=== PATIENT | female | born 1995 | race Caucasian/White ===

== ENCOUNTER 2020-12-05 14:00 | Emergency (ER) | payer OTHER ==
[~2020-12-05] VITALS: Ht 157.5 cm; Wt 45.4 kg
--- NOTE | ~2020-12-05 | EMS ---
[place] [address] EMS Patient Care Report Name: JACKY ELLIOTT Room #: DEP EMEKA Ashely#: [id number] Admission: 12/05/20 Attend Phys: Discharge: 12/05/20 Date of : [birth year] Report #: [id number] THIS REPORT FOR: //name// Report Transmitted: 12/06/2020 12:00 EMS Care Summary [place], [place]/[facility] Incident [phone] @ 12/05/2020 13:19 Incident Location [address] [place] [address] Patient JACKY ELLIOTT Female, 25 Years 1995 Patient Address [address] [place] [address] Patient History Anxiety, Patient Allergies Augmentin, Patient Medications None Reported, Chief Complaint PALPITATIONS Disposition Transported No Lights/[place] Dispatch Reason Heart Problems/AICD Transported To [facility] Narrative MEDIC 30 RESPONDS TO A RESIDENCE ON A REPORTED HEART PROBLEMS. UPON ARRIVAL, EMS FINDS ADULT FEMALE CALMLY WALKING TOWARD AMBULANCE WITH [employer] NEARBY. PT APPEARS TO AMBULATE ON SCENE WITH OUT OBVIOUS DIFFICULTY. RESPIRATIONS APPEAR ADEQUATE, AND NON LABORED. PT ASSISTED INTO AMBULANCE, AND [address] [address] EMS Patient Care Report Name: JACKY ELLIOTT Room #: DEP EMEKA Ashley#: [id number] Admission: 12/05/20 Attend Phys: Discharge: 12/05/20 Date of : [birth year] Report #: [id number] HPI OBTIANED WHILE ASSESSING VITAL SIGNS. PT REPORTS HAVING A SENSATION OF "HEART BURN" FOR "A LITTLE OVER A MONTH", AND WAS HAVING THIS HEART BURN TODAY WHEN PT SUDDENLY BEGAN HAVING SENSATION OF HIGH HEART RATE AND DIZZINESS. PT DESCRIBES SYMPTOMS "MY HEART JUST FEELS LIKE IT'S RACING REALLY BAD FOR NO REASON". PT DESCRIBES EVENTS LEADING UP TO INCIDENT "I WAS JUST WATCHING TELEVISION". PT DENIES RECENT SUBSTANCE/STIMULANT USE, OR RECENT TRAUMA. PT DENIES KNOWN CARDIAC HX, AND DENIES EVER HAVING DIAGNOSED TACHYCARDIA BEFORE. WHEN ASKED IF PT HAS PAIN ANYWHERE, PT RESPONDS YEAH. I'M HAVING REALLY INTENSE HEART BURN PAIN RIGHT NOW". PT TRANSPORTED WITH ONGOING ASSESSMENT. REPORT TO STAFF UPON ARRIVAL. Initial Vitals @13:33P: 139,R: 15,Glucose: 114,CO: 4,SpO2: 100, @13:52P: 127,R: 15,BP: 124/75,CO: 0,SpO2: 100, @13:26P: 145,R: 17,BP: 121/89,GCS: 15,CO: 1,SpO2: 98,Revised Trauma: 12, Assessments @13:24MENTAL:Place Oriented,Time Oriented,Event Oriented,Person Oriented,SKIN:HEENT:Head/Face: Other,Neck/Airway: No Abnormalities,LUNG SOUNDS:ABDOMEN:PELVIS//GI:EXTREMITIES:Left Arm: No Abnormalities,Right Arm: No Abnormalities,Left Leg: No Abnormalities,Right Leg: No Abnormalities,PULSE:Radial: 2+ Normal,NEURO:No Abnormalities,@13:37MENTAL:Person Oriented,Time Oriented,Place Oriented,Event Oriented,SKIN:HEENT:Head/Face: Other,Neck/Airway: No Abnormalities,LUNG SOUNDS:ABDOMEN:PELVIS//GI:EXTREMITIES:Left Arm: No Abnormalities,Right Arm: No Abnormalities,Left Leg: No Abnormalities,Right Leg: No Abnormalities,PULSE:NEURO:No Abnormalities, Impression Cardiac arrhythmia/dysrhythmia Procedures @13:3312-Lead ECGResponse: UnchangedSucceeded@13:24ALS AssessmentResponse: UnchangedSucceeded@13:25StretcherResponse: Unchanged@13:36Saline Lock 10cc (20 ga) Site: Antecubital-RightResponse: UnchangedSucceeded@13:31Saline Lock 0cc (18 ga) Site: Antecubital-LeftResponse: UnchangedFailed@13:273-Lead ECGResponse: UnchangedSucceeded Timeline 13:17,Call Received 13:17,Dispatch Notified 13:19,Dispatched 13:20,En Route 13:24,On Scene 13:24,At Patient 13:24,ALS Assessment,Response: UnchangedSucceeded, [facility] [address] [place] [address] EMS Patient Care Report Name: JACKY ELLIOTT Room #: PANCHO Ashley#: [id number] Admission: 12/05/20 Attend Phys: Discharge: 12/05/20 Date of : [birth year] Report #: [id number] 13:25,Stretcher,Response: Unchanged 13:26,BP: 121/89 M,PULSE: 145,RR: 17 R,SPO2: 98 Ox,ETCO2: ,BG: ,PAIN: ,GCS: 15, 13:27,3-Lead ECG,Response: UnchangedSucceeded, 13:31,Saline Lock 0cc 18 ga Site: Antecubital-Left,Response: UnchangedFailed, 13:33,12-Lead ECG,Response: UnchangedSucceeded, 13:33,BP: / M,PULSE: 139,RR: 15 R,SPO2: 100 Ox,ETCO2: ,B,PAIN: ,GCS: , 13:36,Saline Lock 10cc 20 ga Site: Antecubital-Right,Response: UnchangedSucceeded, 13:47,Depart Scene 13:52,BP: 124/75 M,PULSE: 127,RR: 15 R,SPO2: 100 Ox,ETCO2: ,BG: ,PAIN: ,GCS: , 13:55,At Destination 14:35,Call Closed Disclaimer v1.1 Copyright 2020 [employer] This EMS Care Summary contains data elements from the applicable legal record (which may be displayed differently). It is designed to provide pertinent information for the following purposes: continuity of care, clinical quality, and state data reporting. The complete legal record is available to ED staff and administrators of the receiving hospital in ES's Patient Tracker. All data is provided "as is."
[2020-12-05 14:21] LABS: ABSOLUTE NEUTROPHILS 2.9 thou/uL (1.4-8.2); BASOPHILS 0.5 % (0.0-2.0); EOSINOPHILS 2.1 % (0.0-3.0); HEMATOCRIT 38.9 % (37.0-47.0); HEMOGLOBIN 13.4 gm/dL (12.0-15.0); LYMPHOCYTES 41.7 % (24.0-44.0); MCH 30.2 pg (26.0-34.0); MCHC 34.5 g/dL (28.0-37.0); MCV 87.5 fL (80.0-100.0); MONOCYTES 6.3 % (1.0-8.0); PLATELET COUNT 250 thou/uL (150-400); POLYS 49.4 % (36.0-66.0); RBC 4.45 mil/uL (4.20-5.00); RDW 12.8 % (10.5-14.5); WBC 5.9 thou/uL (4.0-11.0)
[2020-12-05 14:32] LABS: URINE BILIRUBIN NEGATIVE (Negative); URINE BLOOD NEGATIVE (Negative); URINE CLARITY CLEAR; URINE COLOR YELLOW; URINE GLUCOSE-RANDOM* NEGATIVE (Negative); URINE KETONES NEGATIVE (Negative); URINE LEUKOCYTES-REFLEX NEGATIVE (Negative); URINE NITRITE-REFLEX NEGATIVE (Negative); URINE PROTEIN (DIPSTICK) NEGATIVE (Negative); URINE SPECIFIC GRAVITY 1.015 (1.005-1.035); URINE UROBILINOGEN 0.2 E.U./dl (0.2-1.0)
[2020-12-05 14:49] LABS: AMP/METHAMP Negative (Negative); BARBITURATES Negative (Negative); BENZODIAZEPINES Negative (Negative); COCAINE Negative (Negative); METHADONE Negative (Negative); OPIATES Negative (Negative); PCP Negative (Negative)
[2020-12-05 14:58] LABS: ALBUMIN 4.1 g/dL (3.4-5.0); CALCIUM 8.6 mg/dL (8.5-10.1); CREATININE 0.8 mg/dL (0.6-1.0); MAGNESIUM 1.8 mg/dL (1.8-2.4); TOTAL BILIRUBIN 0.5 mg/dL (0.2-1.0); TOTAL PROTEIN 7.3 g/dL (6.4-8.2)
[2020-12-05 15:07] LABS: POTASSIUM 2.9 mmol/L (3.5-5.1)
[2020-12-05] MEDS ORDERED: NEXIUM40 MG PO (16:45)
[2020-12-05 17:07] VITALS: BP 120/72
--- NOTE | 2020-12-06 07:35 | EKG ---
[place] [address] [address] [facility] [address] ELECTROCARDIOGRAM REPORT Name: JACKY ELLIOTT [facility] [id number] Admission: 12/05/20 Attend Phys: Discharge: 12/05/20 Date of : [birth year] Report #: [id number] [facility] ED Test Date: 2020-12-05 Test Time: 14:05:46 Pat Name: JACKY ELLIOTT Department: Room: Gender: F Tipple Boss: FABIO : 1995 Requested By: Deandre Page Order Number: [id number] MD: Donal Craig Measurements Intervals [place] Rate: 135 P: 81 [place]: 151 QRS: 104 QRSD: 87 T: 27 QT: 291 QTc: 437 Interpretive Statements Sinus tachycardia Multiform ventricular premature complexes Aberrant complex Borderline right axis deviation Compared to ECG 12/05/2020 14:02:22 Ventricular premature complex(es) now present Aberrant conduction of supraventricular beat(s) now present Atrial fibrillation no longer present Electronically Signed On 12-06-2020 7:35:28 CDT by Donal Craig [email or web address] <ELECTRONICALLY SIGNED> By: Donal Craig MD, [facility] 12/06/20 0735 1405 1405 Donal Craig MD, [facility] /EPI
--- NOTE | 2020-12-06 07:35 | EKG ---
[address] [address] ELECTROCARDIOGRAM REPORT Name: JACKY ELLIOTT [id number] Admission: 12/05/20 Attend Phys: Discharge: 12/05/20 Date of : [birth year] Report #: [id number] [facility] ED Test Date: 2020-12-05 Test Time: 14:02:22 Pat Name: JACKY ELLIOTT Department: Room: Gender: F City Assessor: : 1995 Requested By: Ghazal Schumacher Order Number: [id number] MD: Donal Craig Measurements Intervals [place] Rate: 124 P: NC: QRS: 95 QRSD: 90 T: 33 QT: 318 QTc: 457 Interpretive Statements SINUS TACHYCARDIA Borderline right axis deviation No previous ECG available for comparison Electronically Signed On 12-06-2020 7:35:23 CDT by Donal Craig [email or web address] <ELECTRONICALLY SIGNED> By: Donal Craig MD, [facility] 12/06/20 0735 1402 1402 Donal Craig MD, [facility] /EPI
== END 2020-12-05 17:08 | disposition home or self-care (01) ==
LOC: ER 14:00
PROVIDERS: Emergency Medicine
DX: E87.6 Hypokalemia (principal); R00.2 Palpitations; R00.0 Tachycardia, unspecified; Z88.1 Allergy status to other antibiotic agents; R07.89 Other chest pain